=== PATIENT | female | born 2000 | race Caucasian/White ===

== ENCOUNTER 2022-02-21 16:14 | Emergency (ER) | payer MEDICAID ==
[~2022-02-21] VITALS: Ht 154.9 cm; Wt 64.0 kg
[2022-02-21] MEDS ORDERED: IBUPROFEN 600MG TABLET PO ONE (18:15)
[2022-02-21] MEDS ORDERED: IBUP-2029 MT (19:16)
[2022-02-21 19:46] VITALS: BP 112/67
== END 2022-02-21 19:46 | disposition home or self-care (01) ==
LOC: ER 16:14
DX: R07.89 Other chest pain (principal)
CPT/HCPCS: 71045; 99283